=== PATIENT | male | born 1965 | race Asian ===

== ENCOUNTER 2020-03-19 09:18 | Outpatient (CLI) | payer OTHER ==
--- NOTE | 2020-03-19 10:57 | RAD ---
PA AND LATERAL CHEST: HISTORY: COVID positive with mild cough. FINDINGS: Heart size within normal limits. There are some patchy bilateral mainly interstitial lung changes. The changes could represent early changes of multifocal pneumonia. IMPRESSION: Patchy bilateral lung change consistent with COVID pneumonia. POS: [facility]
== END 2020-03-19 09:19 | disposition home or self-care (01) ==
LOC: BICRAD 09:18
PROVIDERS: ATTEND Internal Medicine Infectious Disease
DX: U07.1 COVID-19 (principal)
CPT/HCPCS: 71046

== ENCOUNTER 2024-01-12 08:11 | Outpatient (CLI) | payer OTHER | END 2024-01-12 08:12 | disposition home or self-care (01) | LOC: BICRAD 08:11 | PROVIDERS: ATTEND Nurse Practitioner Family | DX: R05.3 Chronic cough (principal) | CPT/HCPCS: 71046 ==